=== PATIENT | male | born 1990 | race Caucasian/White ===

== ENCOUNTER 2021-12-31 17:12 | Observation (INO) ==
[2021-12-31] MEDS ORDERED: levETIRAcetam 1,000 MG in 0.9 % Sodium Chloride 100 ML IVPB ONE (17:31)
[2021-12-31 18:20] LABS: Basophils # 0.1 K/mcL (0.0-0.2); Basophils % 0.7 %; Eosinophils # 0.4 K/mcL (0.0-0.6); Eosinophils % 3.6 %; Hematocrit 44.7 % (37.5-50.1); Hemoglobin 14.9 g/dL (12.9-16.9); Immature Granulocytes % 0.6 % (0-4); Lymphocytes # 2.3 K/mcL (0.6-4.6); Lymphocytes % 22.7 %; Mean Corpuscular HGB Conc 33.3 g/dL (31.6-35.5); Mean Corpuscular Hemoglobin 29.9 pg (28.0-33.3); Mean Corpuscular Volume 89.8 fL (83.0-100.0); Mean Platelet Volume 10.5 fL (9.4-12.4); Monocytes % 9.9 %; Neutrophils # 6.4 K/mcL (1.6-8.9); Platelet Count 253 K/mcL (140-400); Red Blood Count 4.98 M/mcL (4.19-5.50); Red Cell Distribution Width 12.8 % (11.5-14.5); Segmented Neutrophils % 62.5 %; White Blood Count 10.3 K/mcL (4.3-11.1)
[2021-12-31 18:33] LABS: Alanine Aminotransferase 16 Units/L (7-52); Albumin 4.2 g/dL (3.5-5.7); Albumin/Globulin Ratio 1.4 (1.1-2.2); Alkaline Phosphatase 52 Units/L (34-104); Aspartate Amino Transferase 15 Units/L (13-39); BUN/Creatinine Ratio 12 (6-26); Bilirubin,Total 0.3 mg/dL (0.3-1.0); Blood Urea Nitrogen 12 mg/dL (6-20); Calcium 9.2 mg/dL (8.6-10.3); Carbon Dioxide 16 mEq/L (23-29); Chloride 102 mEq/L (98-107); Globulin 2.9 g/dL (2.4-3.5); Glucose 94 mg/dL (70-105); Magnesium 2.4 mg/dL (1.6-2.6); Osmolality,Calculated 282 (280-300); Potassium 4.1 mEq/L (3.5-5.1); Sodium 136 mEq/L (136-145); Total Protein 7.1 g/dL (6.4-8.9); eGFR For African Americans > 60 (> 60); eGFR For Non-African Americans > 60 (> 60)
[2021-12-31] MEDS ORDERED: 0.9 % Sodium Chloride 1,000 ML IV ONE (19:00)
[2021-12-31 19:29] LABS: Bilirubin,Urine Negative (Negative); Blood,Urine Negative (Negative); Clarity,Urine Clear (Clear); Color,Urine Colorless (Yellow); Glucose,Urine (UA) Normal (Normal); Ketones,Urine 10 mg/dL (Negative); Leukocyte Esterase,Urine Negative (Negative); Mucus,Urine Few per lpf (None-Few); Nitrite,Urine Negative (Negative); Protein,Urine 30 mg/dL (Neg-Trace); RBC,Urine 0-3 per hpf (0-3); Specific Gravity,Urine 1.019 (1.010-1.025); Urobilinogen,Urine Normal (Normal); WBC,Urine 0-3 per hpf (0-3)
[2021-12-31 19:49] LABS: Amphetamine Screen,Urine Positive ng/mL (Cutoff=1000); Barbiturate Screen,Urine Negative ng/mL (Cutoff=200); Benzodiazepines Screen,Urine Negative ng/mL (Cutoff=200); Cannabinoid Screen,Urine Negative ng/mL (Cutoff = 50); Cocaine Screen,Urine Negative ng/mL (Cutoff= 300); Opiate Screen,Urine Negative ng/mL (Cutoff=300); Phencyclidine Screen,Urine Negative ng/mL (Cutoff=25)
[2021-12-31 20:14] LABS: Ethanol < 10 mg/dL (Less than 10)
[2021-12-31] MEDS ORDERED: Naloxone 0.4 MG/ML INJ IVP PRN (20:56)
[2021-12-31] MEDS ORDERED: Ondansetron 4 MG/2 ML VIAL IVP PRN (20:56)
[2021-12-31 21:24] LABS: Troponin I < 0.03 ng/mL (< 0.04)
[2021-12-31] MEDS: 0.9 % Sodium Chloride 1,000 ML IVC SCH (22:03)
[2022-01-01 04:14] LABS: Hematocrit 40.1 % (37.5-50.1); Hemoglobin 13.5 g/dL (12.9-16.9); Mean Corpuscular HGB Conc 33.7 g/dL (31.6-35.5); Mean Corpuscular Hemoglobin 29.7 pg (28.0-33.3); Mean Corpuscular Volume 88.1 fL (83.0-100.0); Mean Platelet Volume 11.1 fL (9.4-12.4); Platelet Count 231 K/mcL (140-400); Red Blood Count 4.55 M/mcL (4.19-5.50); White Blood Count 8.9 K/mcL (4.3-11.1)
[2022-01-01 06:33] LABS: BUN/Creatinine Ratio 12 (6-26); Blood Urea Nitrogen 10 mg/dL (6-20); Calcium 8.6 mg/dL (8.6-10.3); Carbon Dioxide 16 mEq/L (23-29); Chloride 112 mEq/L (98-107); Chol/HDL Ratio 2.2 (0-4.9); Cholesterol 114 mg/dL (< 200); Glucose 92 mg/dL (70-105); HDL Cholesterol 51 mg/dL (40-59); LDL Cholesterol,Calculated 55 mg/dL (< 100); Osmolality,Calculated 291 (280-300); Potassium 4.9 mEq/L (3.5-5.1); Sodium 141 mEq/L (136-145); Triglycerides 38 mg/dL (< 150); eGFR For African Americans > 60 (> 60); eGFR For Non-African Americans > 60 (> 60)
[2022-01-01 07:20] LABS: Hepatitis B Surface Antigen Nonreactive (Nonreactive)
[2022-01-01 07:49] LABS: Hepatitis B Core IgM Nonreactive (Nonreactive)
[2022-01-01 07:51] LABS: Hepatitis A Antibody IgM Nonreactive (Nonreactive)
[2022-01-01] MEDS: 0.9 % Sodium Chloride 1,000 ML IVC SCH (08:03)
[2022-01-01 10:02] LABS: Hepatitis C Virus Antibody Reactive (Nonreactive)
[2022-01-01 10:45] LABS: Troponin I < 0.03 ng/mL (< 0.04)
[2022-01-01 10:59] LABS: Thyroid Stimulating Hormone 0.086 mcIU/mL (0.340-5.600)
[2022-01-01] MEDS ORDERED: *HR* Buprenorphine HCl 8 MG TAB.SUBL SL SCH (16:30)
[2022-01-01 18:14] LABS: Estimated Average Glucose 97 mg/dl
[2022-01-01 18:55] VITALS: BP 132/84; PULSE 103; TEMP 98.1; O2SAT 95
[2022-01-01] MEDS ORDERED: Nicotine 21 MG PATCH.TD24 TD SCH (19:00)
== END 2022-01-01 20:20 | disposition left against medical advice (07) ==
LOC: EMEROOARM 17:12 → 3BNU 17:12 → SUATTDRO 19:49 → 3BNU 21:05
PROVIDERS: ADMIT Internal Medicine; ATTEND Nurse Practitioner